=== PATIENT | male | born 1980 | race African-American/Black ===

== ENCOUNTER → 2019-01-15 | Outpatient (CLI) | payer OTHER ==
--- NOTE | 2019-01-15 10:06 | US ---
EXAMINATION TYPE: US kidneys/renal and bladder DATE OF EXAM: 01/15/2019 COMPARISON: NONE CLINICAL HISTORY: Abn clinical findings R68.89. Proteinuria, diabetes EXAM MEASUREMENTS: Right Kidney: 11.7 x 5.3 x 5.6 cm Left Kidney: 10.2 x 5.4 x 4.2 cm Right Kidney: no evidence of hydronephrosis Left Kidney: no evidence of hydronephrosis Bladder: appears wnl Bilateral Jets seen: yes IMPRESSION: 1. Normal retroperitoneal ultrasound
== END ==
LOC: RADUSWWP 07:09
PROVIDERS: ATTEND Family Medicine
DX: R68.89 Other general symptoms and signs (principal)
CPT/HCPCS: 76770

== ENCOUNTER → 2019-03-17 | Outpatient (CLI) | payer OTHER ==
--- NOTE | 2019-03-18 10:30 | US ---
EXAMINATION TYPE: US thyroid st tissue head/neck DATE OF EXAM: 03/17/2019 COMPARISON: NONE CLINICAL HISTORY: R22.0 Neck palpable abnormality, R22.1 Neck Mass. Swelling/lump right neck. GLAND SIZE: Right Lobe: 10.8 x 6.1 x 4.7 cm Overall Parenchyma: Very heterogeneous echotexture of thyroid lobe. Unable to measure distinct no dules. Left Lobe: 6.8 x 2.5 x 2.4 cm Overall Parenchyma: Heterogeneous. Isthmus Thickness: 0.54 cm NODULES RIGHT: # of nodules measured on right: No nodules measured. Very heterogeneous. Enlarged lobe with approximate measurement. LEFT: # of nodules measured on left: 1 1. 2.2 X 1.7 x 1.1 cm Isoechoic mixed nodule at the upper pole with well-defined margins. This nod ule is wider than tall and shows intranodular vascularity. Prior size: No prior ISTHMUS: # of nodules measured in the isthmus: 0 IMPRESSION: 1. Enlarged left lobe thyroid nodule. 2. Thyromegaly
== END ==
LOC: RADUSWWP 17:01
PROVIDERS: ATTEND Family Medicine
DX: E01.0 Iodine-deficiency related diffuse (endemic) goiter (principal)
CPT/HCPCS: 76536

== ENCOUNTER 2019-04-24 09:26 | Day surgery (SDC) | payer OTHER ==
[2019-04-24 10:00] VITALS: TEMP 98.1
[2019-04-24 11:12] VITALS: BP 137/81; PULSE 68; RESP 16
--- NOTE | 2019-04-24 11:15 | US ---
ULTRASOUND GUIDED FNA THYROID BIOPSY: CLINICAL HISTORY: Left thyroid nodule FINDINGS: The procedure was explained to the patient. The risks, complications, benefits and alternatives were discussed and any questions were answered. Informed consent was obtained. Patient was placed supin e on the ultrasound table and prepped and draped in the usual sterile fashion. Utilizing a 25 gauge needle, five passes were made into the requested left thyroid nodule. Patient was stable throughout the procedure. Pathology is pending. All elements of maximal barrier technique were utilized. IMPRESSION: 1. Successful ultrasound guided FNA thyroid biopsy.
== END 2019-04-24 10:45 | disposition home or self-care (01) ==
LOC: RADPROMAIN 09:26
PROVIDERS: ATTEND Surgery
DX: E04.1 Nontoxic single thyroid nodule (principal)
CPT/HCPCS: 10005; 88173; 88305